=== PATIENT | female | born 1970 | race Two or more races ===

== ENCOUNTER 2021-09-18 06:29 | Day surgery (SDC) | payer OTHER ==
[~2021-09-18 06:29] MED LIST: DALIRESP500 MCG PO; EXFORGE 10-3201 EACH PO; SYNTHROID125 MCG PO; TRELEGY ELLIPT1 EACH IH; XOPENEX HFA15 GM IH
[2021-09-18] MEDS ORDERED: TRAMADOL HCL50 MG PO (10:49)
[2021-10-01] MEDS ORDERED: SYNTHROID125 MCG PO (14:03)
[2021-10-01] MEDS ORDERED: SINGULAIR10 MG PO (14:03)
[2021-10-01] MEDS ORDERED: EXFORGE 10-3201 EACH PO (14:03)
[2021-10-01] MEDS ORDERED: CRESTOR10 MG PO (14:04)
== END 2021-09-18 11:40 | disposition home or self-care (01) ==
LOC: CIR.AMB 06:29
PROVIDERS: ATTEND Surgery
DX: C18.7 Malignant neoplasm of sigmoid colon (principal); Z20.822 Contact with and (suspected) exposure to COVID-19
CPT/HCPCS: 36561; C1751

== ENCOUNTER 2021-10-07 06:21 | Day surgery (SDC) | payer OTHER ==
[~2021-10-07 06:21] MED LIST changes: +CRESTOR10 MG PO; +SINGULAIR10 MG PO; +TRAMADOL HCL50 MG PO
== END 2021-10-07 09:39 | disposition home or self-care (01) ==
LOC: AMB-ENDOS 06:21
PROVIDERS: ATTEND Surgery
DX: C18.7 Malignant neoplasm of sigmoid colon (principal); K64.8 Other hemorrhoids; Z20.822 Contact with and (suspected) exposure to COVID-19

== ENCOUNTER 2021-10-08 07:33 | Inpatient (IN) | payer OTHER ==
[~2021-10-08] VITALS: Ht 167.6 cm; Wt 72.1 kg
[2021-10-13] MEDS ORDERED: PERCOCET 5-3251 EACH PO (06:39)
== END 2021-10-13 11:21 | disposition home or self-care (01) | DRG 331 ==
LOC: O/R 10-09 05:53 → SURH 10-09 07:00 → O/R 10-09 09:23 → SURG 10-09 11:42 → SURH 10-09 13:17 → SURG 10-13 11:21
PROVIDERS: ADMIT Surgery; ATTEND Surgery
PROC: 0DTN4ZZ Resection of Sigmoid Colon, Percutaneous Endoscopic Approach (ICD-10-PCS; 2021-10-09)
PROC: 07TC4ZZ Resection of Pelvis Lymphatic, Percutaneous Endoscopic Approach (ICD-10-PCS; 2021-10-09)
PROC: 3E0F7SF Introduction of Other Gas into Respiratory Tract, Via Natural or Artificial Opening (ICD-10-PCS; 2021-10-09)
PROC: 0DTP4ZZ Resection of Rectum, Percutaneous Endoscopic Approach (ICD-10-PCS; principal; 2021-10-09 07:00)
DX: C18.7 Malignant neoplasm of sigmoid colon (principal)

== ENCOUNTER 2022-03-26 16:35 | Emergency (ER) | payer OTHER ==
[~2022-03-26] VITALS: Ht 162.6 cm; Wt 69.9 kg
[~2022-03-26 16:35] MED LIST changes: +PERCOCET 5-3251 EACH PO
== END 2022-03-26 19:06 | disposition home or self-care (01) ==
LOC: ER 16:35
DX: R07.9 Chest pain, unspecified (principal); I10 Essential (primary) hypertension; Z85.038 Personal history of other malignant neoplasm of large intestine